=== PATIENT | female | born 1990 | race Caucasian/White ===

== ENCOUNTER 2020-05-08 22:12 | Emergency (ER) | payer OTHER, SELFPAY ==
[2020-05-08 22:13] VITALS: BP 113/64; PULSE 85; RESP 16; TEMP 36.7; O2SAT 99; BMI 18.8
--- NOTE | 2020-05-08 22:19 | ECG_ITS ---
[facility] Test Date: 2020-05-08 Pat Name: Connie Mckay Department: Room: Gender: Female Dumpster Operator: : 1990 Requested By: Jeremías Rodriguez Order Number: [id number] Albert MD: Trae Bender M.D. Measurements Intervals [place] Rate: 65 P: 61 ID: [id number] QRS: 30 QRSD: 86 T: 48 QT: 437 QTc: 455 Interpretive Statements SINUS RHYTHM No previous ECG available for comparison Electronically Signed On 05-09-2020 16:03:17 CDT by Trae Bender M.D. [email or web address]
--- NOTE | 2020-05-08 22:21 | ED_ITS ---
HPI - Seizure General: Chief Complaint: Seizure Stated Complaint: SEIZURE Time Seen by Provider: 05/08/20 22:18 Source: EMS Mode of arrival: EMS Limitations: altered mental status History of Present Illness: HPI Narrative: Patient presents here with active seizures. Patient has a history of seizures and per EMS has had [address] for [place]. Patient was actively seizing upon arrival given Ativan and is currently stopped. EMS states when she did wake from the seizure she would respond. She had walked to the ambulance bay stating she felt like she was getting have a seizure and felt funny during the day. No history here is available due to her altered mental status. complaint: seizure Onset (ago): minute(s) Review of Systems General: Reports: ROS unobtainable due to medical condition Neuro: Reports: seizure-like activity Physical Exam Const: GENERAL APPEARANCE: in distress HENMT: COMMON NORMALS: normocephalic and atraumatic HEAD & SCALP: normocephalic and atraumatic Eye: COMMON NORMALS: Equal, round and reactive pupils present and EOMs intact bilaterally PUPIL: Yes Equal, round and reactive pupils present Neck/C-Spine: COMMON NORMALS: full ROM and supple Chest: COMMONS NORMALS: normal inspection of the chest and normal palpation of entire chest wall Resp: COMMON NORMALS: normal respiratory effort, No retractions, No use of accessory muscles and clear to auscultation bilaterally AUSCULTATION: clear to auscultation bilaterally Cardio: COMMON NORMALS: regular rate, regular rhythm and No murmurs present (Cardio) RATE: regular rate RHYTHM: regular rhythm GI: COMMON NORMALS: Normal to inspection, nondistended, normoactive bowel sounds present, Soft to palpation, non-tender and no masses PALPATION: Yes Soft to palpation Extremity: COMMON NORMALS: normal to inspection and full ROM Neuro: OTHER: Actively seizing Psych: COMMON NORMALS: negative for Normal thought process present THOUGHT PROCESS: abnormal Skin: COMMON NORMALS: no rashes or lesions noted and no wounds GENERAL SKIN EXAM: no rashes or lesions noted Course Vital Signs: Vital signs: Vital Signs Temperature 98.1 F 05/08/20 22:13 Pulse Rate 54 L 05/09/20 03:44 Respiratory Rate 16 05/09/20 03:44 Blood Pressure 95/55 05/09/20 03:44 Pulse Oximetry 100 05/09/20 03:44 MDM - Seizure MDM Narrative: Medical decision making narrative: Ryder presents here with possible seizure. Her seizures here were atypical states that she has stress-induced seizures have not ever been, and EEG. Patient's head CT and lab work here are normal. Patient feels improved and is requesting discharge. She is able ambulate and answer my questions. She is to follow-up with her primary care doctor in 3 to 5 days return if worsening. Lab Data: Labs: Lab Results 05/08/20 05/08/20 05/08/20 Range/Units 22:48 22:48 22:48 WBC 5.1 (4.0-10.0) 10^3/ uL RBC 4.18 (4.1-5.3) 10^6/u L Hgb 12.2 (11.5-15.3) g/dL Hct 37.8 (37.0-47.0) % MCV 90.4 (81-99) fL MCH 29.2 (28.0-34.0) pg MCHC 32.3 (30.0-36.0) g/dL RDW 11.8 L (12.1-15.1) % Plt Count 197 (130-400) 10^3/c mm MPV 10.5 H (7.4-10.4) fL Neut % (Auto) 55.7 % Lymph % (Auto) 36.6 % [place] % (Auto) 7.3 % Eos % (Auto) 0.0 % Baso % (Auto) 0.4 % Neut # (Auto) 2.82 (1.8-7.7) 10^3/u L Lymph # (Auto) 1.9 (0.8-4.8) 10^3/u L [place] # (Auto) 0.4 (0.2-0.9) 10^3/u L Eos # (Auto) 0.0 (0.0-0.8) 10^3/u L Baso # (Auto) 0.0 (0.0-0.1) 10^3/u L Nucleated RBC % (a uto) 0 % Nucleated RBCs # 0.0 /100WBC Sodium 143 (136-145) mmol/L Potassium 3.8 (3.5-5.1) mmol/L Chloride 106 (98-107) mmol/L Carbon Dioxide 27 (22-29) mmol/L Anion Gap 13.8 (5-19) BUN 24 H (6-20) mg/dL Creatinine 0.7 (0.5-0.9) mg/dL GFR Calculation 99.6 (90-130) mL/min Glucose 88 (65-115) mg/dL Calculated Osmolal ity 292 (285-295) mOsm/k g Calcium 8.7 (8.5-10.5) mg/dL Total Bilirubin 0.4 (0.15-1.2) mg/dL AST 17 (0-32) U/L ALT 17 (0-33) U/L Alkaline Phosphata se 51 (35-105) IU/L Total Protein 6.0 L (6.6-8.7) g/dL Albumin 4.0 (3.5-5.2) g/dL Globulin 2.0 (1.3-4.6) g/dL HCG, Qual Negative (Negative) Imaging Data^: CT Head: Radiologist's impression: [place] [address] CT Scan Report Signed Patient: Connie Mckay Unit #: [id number] : 1990 Age/Sex: 29 / F ADM Date: 05/08/20 Loc: ER Room/Bed: Attending Dr: Ordering Provider/Ordering MD: Jeremías Rodriguez MD Date of Service: 05/08/20 Procedure(s): CT head wo con* [id number] Accession Number(s): [id number] Report Number: [id number] PROCEDURE INFORMATION: Exam: CT Head Without Contrast Exam date and time: 05/08/2020 10:25 PM Age: 29 years old Clinical indication: Condition or disease; Convulsions or seizures; Prior surgery; Additional info: Seizure TECHNIQUE: Imaging protocol: Computed tomography of the head without contrast. Radiation optimization: All CT scans at this facility use at least one of these dose optimization techniques: automated exposure control; mA and/or kV adjustment per patient size (includes targeted exams where dose is matched to clinical indication); or iterative reconstruction. COMPARISON: CT Head wo IV contrast* [id number] 05/19/2019 3:19 AM RADIATION DOSE METRICS: Total DLP (mGy-cm): 1260.12 FINDINGS: Brain: Small area of encephalomalacia inferior right frontal lobe is noted. Previously visualized mass/hemorrhage has been resected. No acute hemorrhage. Unremarkable white matter. No mass effect. Ventricles: Normal. No ventriculomegaly. Bones/joints: Postoperative craniotomy. No acute fracture. Sinuses: Visualized sinuses are unremarkable. No fluid levels. Mastoid air cells: Visualized mastoid air cells are well aerated. Soft tissues: Unremarkable. CT/CT head wo con* [id number] IMPRESSION: No acute intracranial abnormality. Postoperative changes are noted. EKG Data^: EKG 1: Attestation: I personally reviewed and interpreted this EKG as follows: EKG interpretation date: 05/08/20 EKG interpretation time: 22:47 Interpretation: nsr hr [address] or t wav abnormalities qrs 86 qtc 443 Discharge Plan Discharge Patient Disposition: Home Clinical Impression: Generalized seizure Condition: Stable Prescriptions: No Action estradiol 1 mg tablet 1 mg PO DAILY 30 Days Qty: 5 RF: 0 desvenlafaxine succinate [Pristiq] 25 mg tablet extended release 24 hr 25 mg PO BID 7 Days Qty: 14 RF: 0 Discharge Orders: Discharge Order (Routine); Ordered 05/09/20 Ordered By: Jeremías Rodriguez Referrals: Cheyanne Leon MD [Primary Care Provider] - 1-3 days Discharge Diet: Advance as tolerated Discharge Activity: Resume usual activity Patient Instructions: Recurrent Seizures Adult (ED) Stand Alone Forms: Work/School Release Discharge Date/Time: 05/09/20 03:59 Coding Level of Care Code ED Sql [employer] Dba Developer for Chg Fwd Exam Comprehensive
[2020-05-08] MEDS: LORazepam 2 mg/mL INJ 1 mL 6 MG IVP (22:31)
[2020-05-08 22:36] VITALS: BP 91/53; PULSE 72; RESP 18; O2SAT 100
[2020-05-08] MEDS: LORazepam 2 mg/mL INJ 1 mL 4 MG IVP (22:37)
--- NOTE | 2020-05-08 22:38 | PC.NURSE ---
IN PT'S ROOM TO DO A EKG. PT WAS FOUND TO BE HAVING A SEIZURE. SEIZURE STOPPED WITH 4MG OF ATIVAN AND KEPPRA BOLUS STARTED.
[2020-05-08] MEDS: sodium chloride 0.9% 1,000 ML 999 ML IV ×2 (22:41→23:47)
--- NOTE | 2020-05-08 22:54 | PC.NURSE ---
EKG done at 2245 and shown to ER doctor
[2020-05-08 22:56] LABS: Basophils % 0.4 %; Hematocrit 37.8 % (37.0-47.0); Hemoglobin 12.2 g/dL (11.5-15.3); Lymphocytes # 1.9 10^3/uL (0.8-4.8); Lymphocytes % 36.6 %; Mean Corpuscular HGB Conc 32.3 g/dL (30.0-36.0); Mean Corpuscular Hemoglobin 29.2 pg (28.0-34.0); Mean Corpuscular Volume 90.4 fL (81-99); Mean Platelet Volume 10.5 fL (7.4-10.4); Monocytes # 0.4 10^3/uL (0.2-0.9); Monocytes % 7.3 %; Neutrophils # 2.82 10^3/uL (1.8-7.7); Neutrophils % 55.7 %; Nucleated Red Blood Cells % 0 %; Platelet Count 197 10^3/cmm (130-400); Red Blood Count 4.18 10^6/uL (4.1-5.3); Red Cell Distribution Width 11.8 % (12.1-15.1); White Blood Count 5.1 10^3/uL (4.0-10.0)
[2020-05-08 23:15] LABS: Alanine Aminotransferase 17 U/L (0-33); Alkaline Phosphatase 51 IU/L (35-105); Anion Gap 13.8 (5-19); Aspartate Amino Transferase 17 U/L (0-32); Blood Urea Nitrogen 24 mg/dL (6-20); Calcium 8.7 mg/dL (8.5-10.5); Carbon Dioxide 27 mmol/L (22-29); Chloride 106 mmol/L (98-107); Glomerular Filtration Rate 99.6 mL/min (90-130); Glucose 88 mg/dL (65-115); Osmolality Calculated 292 mOsm/kg (285-295); Potassium 3.8 mmol/L (3.5-5.1); Sodium 143 mmol/L (136-145); Total Bilirubin 0.4 mg/dL (0.15-1.2)
[2020-05-08 23:28] LABS: HCG, Serum Qual Negative (Negative)
[2020-05-08 23:43] VITALS: BP 87/44; PULSE 73; RESP 16; O2SAT 99
[2020-05-09] VITALS: BP 90/45; PULSE 69; RESP 16; O2SAT 100
[2020-05-09 01:00] VITALS: BP 92/51; PULSE 65; RESP 17; O2SAT 100
[2020-05-09 02:00] VITALS: BP 98/54; PULSE 57; RESP 15; O2SAT 100
[2020-05-09] MEDS: sodium chloride 0.9% 1,000 ML 999 ML IV (02:31)
[2020-05-09 03:00] VITALS: BP 94/66; PULSE 49; RESP 14; O2SAT 100
[2020-05-09 03:44] VITALS: BP 95/55; PULSE 54; RESP 16; O2SAT 100
== END 2020-05-09 03:59 | disposition home or self-care (01) ==
PROVIDERS: Emergency Provider Emergency Medicine; PCP Family Medicine
DX: G40.89 Other seizures (principal)
CPT/HCPCS: 12345; 70450; 80053; 84703; 85025; 93005; 96365; 96366; 96375; 96376; 99284; J1953; J2060; J7030

== ENCOUNTER → 2021-01-02 14:50 | Outpatient (BNVA) | payer OTHER, SELFPAY | PROVIDERS: PCP Family Medicine; Visit Provider Otolaryngology | DX: R13.10 Dysphagia, unspecified (principal) | CPT/HCPCS: 87635 ==

== ENCOUNTER 2021-01-07 07:56 | Day surgery (SDC) | payer OTHER, SELFPAY ==
[2021-01-07] VITALS (9 sets, daily range): BP systolic 96–114; BP diastolic 65–70; PULSE 45–66; RESP 10–18; TEMP 36.3–36.7; O2SAT 99–100
--- NOTE | 2021-01-07 06:41 | P.ANESASSM_ITS ---
Pre-Anesthetic Assessment Pre-Anesthetic Assessment: Height/Weight: Height 1.65 m Weight 61.235 kg Preop Diagnosis: dysphagia Proposed Procedure: Operation Date: 01/07/21 09:20 Proposed Procedures p Direct Laryngoscopy with biopsy [id number] R49.0(Not Applicable) - Yunior Webster MD Familial anesthetic complications: PONV Was Beta Jennifer taken within 24 hours: N/A Was Clonidine taken within 24 hours: N/A Last intake: > 8 hrs Social: Social History: No alcohol and No tobacco Exam: Pre-Anes Outpt Exam: alert, oriented x 3, clear to auscultation bilaterally and regular rate & rhythm Airway: Cervical ROM: WNL MP: 1 Dentition: Full Neuropsych: Neuropsych: Seizure Anesthetic Plan: ASA status: 2 Anesthesia: General Risk of > 500 ml blood loss (7ml/kg in children): No PFSH Anesthesia PFSH: Medical History CHAPO (generalized anxiety disorder) Intracranial hemorrhage, spontaneous intraventricular, due to cerebral cavernoma, acute Seizure disorder Surgical History H/O abdominal surgery teratoma tumor removal x2 H/O craniotomy H/O tubal ligation H/O: hysterectomy History of ankle surgery History of surgical removal of meniscus of knee S/P appendectomy S/P cholecystectomy Family History Mother Clotting disorder Brother Clotting disorder Sister Clotting disorder Grandmother Diabetes CAD (coronary artery disease) Hypertension Grandfather Lung disease Denies family history of Suicide Social History Smoking and tobacco status: former smoker Quit status (tobacco): has quit using tobacco Year quit tobacco: 2013 Second hand smoke exposure: No Alcohol intake: former Year of sobriety/quit date alcohol: 2019 Former alcohol use details: VERY RARE Caregiver/support person: Yes Lives independently: No Household members: spouse and children Housing: House Marital status: Number of children: 2 Number of grandchildren: 0 service: No Current occupational status: employed Current occupation: NURSE [employer] [place] Pets and animals: Yes Pets & animals: dog(s), horse(s) and farm animals Farm Animals: horses/donkey/mule History of recent travel: No Sexually active: Yes Are you practicing safe sex: No Current gender identity: Female Female Reproductive History: Spontaneous abortions: No Data Anesthesia Cardiac Studies: No Data to Display
[2021-01-07] MEDS: sodium chloride 0.9% 1,000 ML 30 ML IV (08:30)
[2021-01-07] MEDS: scopolamine 1.5 Patch 1 PATCH TRANSDERMA (08:31)
[2021-01-07] MEDS: ondansetron 2 mg/ML SDV 2 mL 4 MG IVP (08:31)
[2021-01-07] MEDS: ondansetron 4 MG Tablet PO (08:43)
--- NOTE | 2021-01-07 09:37 | W.PM.OPSUD ---
Surgery/Procedure H&P Update DATE OF PROCEDURE: January 07, 2021 DATE H&P PERFORMED: 01/02/21 H&P UPDATE INFORMATION: I have reviewed H&P completed within last 30 days, I have examined patient prior to procedure and No changes to prior documentation PREOP DIAGNOSIS: dysphagia PLANNED PROCEDURE: Operation Date: 01/07/21 09:20 Proposed Procedures p Direct Laryngoscopy with biopsy [id number] R49.0(Not Applicable) - Yunior Webster MD
[2021-01-07] MEDS: EPINEPHrine 1 mg/mL INJ XX (10:15)
--- NOTE | 2021-01-07 10:25 | P.OP_ITS ---
Operative Report Date of procedure: January 07, 2021 Pre-op Diagnosis: dysphagia /right arytenoid mass Post-op diagnosis: same Post-op Findings: Findings at surgery were spherical white mass extending from the posterior true vocal cord and arytenoid medially Procedure Done: Direct suspension microscopic laryngoscopy with excision of right true vocal cord and arytenoid mass Implants: No implants Specimens removed/disposition: Right true vocal cord and arytenoid mass Pathology: Right true vocal cord and arytenoid mass Surgeon: Yunior Webster Anesthesia: General Estimated blood loss (mL): 5 Complications: No complications Findings: Findings at the time of the procedure are a 3 mm spherical mass white in color and emanating from the posterior aspect of the right true vocal cord and adjoining arytenoid. Condition: stable Disposition: PACU Brief History: 30-year-old female patient has had problems with painful and difficult swallowing as well as hoarseness. She was noted on flexible laryngoscopy in the office to have a right arytenoid spherical mass which was white in color and measured about 3 mm in diameter. It was felt that this needed to be removed surgically. The procedure its risks and complications of been explained in detail to the patient in the office setting. These risks included bleeding infection scarring swelling bruising recurrence need for additional treatment and more serious risk such as heart attack or stroke or not surviving the surgery. It is understood that it is likely that the patient will need to be on voice rest for up to 2 weeks after surgery. With all these things understood informed consent was granted and witnessed. Procedure: Description of procedure: The patient was placed on the operating table in the supine position. Adequate general endotracheal tube anesthesia was obtained. She was given Ancef IV for prophylaxis. The table was rotated 90 degrees. The eyes were taped shut and head drape was applied in usual fashion. The head was dropped 15 degrees to the horizontal. At this point a timeout was accomplished identifying the patient date of plan procedure allergies fire risk and medications given. With all in agreement the procedure continued. An anterior commissure operating laryngoscope was inserted over the tongue and the upper dentition was protected by a mouthguard. The scope was inserted to the posterior oropharynx and then down into the hypopharynx and laryngeal area. When appropriate position it was suspended from a Nicholas stand. A microscope with a 400 lens was then brought in for proper visualization. The mass extending off the arytenoid and posterior right true cord was identified. This was removed in a piecemeal fashion using small cup forceps biting level with the surface of the posterior true vocal cord and arytenoid mucous membrane. After removing several small pieces and the large mass and it was smooth the area was treated with a cottonoid soaked in 1-1000 epinephrine. After few minutes this was removed. 2% Xylocaine was sprayed to the larynx to cut down on cough response after surgery. Another cottonoid was placed with 1 1000 epinephrine over the surgical site. This was again removed after several minutes. The area was suctioned clean. There was no sign of bleeding. The suspension was taken down and the scope was removed. The tooth guard was removed. The head was returned to the upright position. Head drape and tape were removed. The throat was then suctioned again with the [employer] suction tip. With no sign of bleeding the patient was then returned to the anesthesiologist for wake-up and extubation. She tolerated the procedure well had an estimated blood loss of 5 mL and arrived in recovery in stable condition.
--- NOTE | 2021-01-07 18:01 | ANE.PACU2 ---
Inpatient post-anesthesia follow up: Airway intact: Yes Vital signs: Temperature 98 F Pulse Rate 62 Respiratory Rate 16 Blood Pressure 100/67 Pulse Oximetry 99 Oxygen Delivery Me thod Room Air Oxygen Flow Rate 6 Fraction of Inspir ed Oxygen Hydration adequate: Yes Nausea and vomiting: No Pain level: 2 Mental status: Baseline
== END 2021-01-07 11:40 | disposition home or self-care (01) ==
PROVIDERS: PCP Family Medicine; Visit Provider Otolaryngology
PROC: 0CJS8ZZ Inspection of Larynx, Via Natural or Artificial Opening Endoscopic (ICD-10-PCS; CPT 31540; principal; 2021-01-07 09:10)
DX: R13.10 Dysphagia, unspecified (principal); J38.7 Other diseases of larynx; Z87.891 Personal history of nicotine dependence
CPT/HCPCS: 31540; 88305; 96374; J0171; J0690; J1100; J1200; J2250; J2405; J3010; J3490; J7030; Q0162

== ENCOUNTER → 2021-05-19 17:34 | Outpatient (BNVA) | payer OTHER, SELFPAY | PROVIDERS: PCP Family Medicine; Visit Provider Family Medicine | DX: F41.1 Generalized anxiety disorder (principal); G40.909 Epilepsy, unspecified, not intractable, without status epilepticus; F32.9 Major depressive disorder, single episode, unspecified; R53.83 Other fatigue; R63.5 Abnormal weight gain | CPT/HCPCS: 80053; 80061; 82607; 82652; 84443; 85025 ==

== ENCOUNTER 2022-07-28 10:04 | Emergency (ER) | payer OTHER, SELFPAY ==
[2022-07-28] VITALS (66 sets, daily range): BP systolic 92–132; BP diastolic 51–91; PULSE 94; RESP 16–18; TEMP 36.6; O2SAT 88–100; BMI 27.4
--- NOTE | 2022-07-28 11:50 | CT_ITS ---
WS: [id number] CT ABDOMEN PELVIS TECHNIQUE: Contrast-enhanced CT of the abdomen and pelvis with coronal and sagittal reformatted image s. CLINICAL INFORMATION: generalized abd COMPARISON: CT November 10, 2018 DLP: 612.[address] scans at [facility] use at least one of these dose optimization techniques: automated e xposure control; mA and/or kV adjustment per patient size (includes targeted exams where dose is matc hed to clinical indication); or iterative reconstruction. FINDINGS: Since 2019. Previously described RIGHT pelvic mass has been resected. Prior hysterectomy. P rior tubal ligation. Prior cholecystectomy and appendectomy. Mild diffuse fatty infiltration liver. Normal portal vein and splenic vein. Lung bases are well aerat ed. Normal spleen. Normal GE junction. Adrenal glands are normal. Normal renal parenchymal enhancemen t. No hydronephrosis. No obstructing renal or ureteral calculi. Pelvic phleboliths. Normal renal pare nchymal enhancement. Normal pancreas. Prior cholecystectomy. Normal common bile duct. Normal caliber abdominal aorta. Celiac and SMA are patent. Normal sigmoid colon. No evidence of small or large bowel obstruction. CT/CT abdomen pelvis w con* [id number] IMPRESSION: 1. No acute findings in the abdomen or pelvis. 2. Prior appendectomy and cholecystectomy. 3. No free fluid in the abdomen or pelvis. 4. Interval resection of the previously described RIGHT pelvic dermoid since 019.
--- NOTE | 2022-07-28 11:52 | ED_ITS ---
HPI - Abdominal Pain General: Chief Complaint: Abdominal Pain Stated Complaint: Abd pains Time Seen by Provider: 07/28/22 11:24 Source: patient and family Mode of arrival: ambulatory Limitations: no limitations History of Present Illness: This patient presents [facility] emergency department because of abdominal pain. She states that she noted nausea Tuesday evening which has progressed to nausea persistently, vomiting, diarrhea and severe abdominal pains. She states that the pains have been pretty steadily present since onset. She states that she has been unsuccessful with eating or drinking much. She states that she has not any blood in her stools or blood in her emesis. She has had a prior cholecystectomy, appendectomy and a hysterectomy. She denies any exposure to infectious disease. She did get antibiotics a couple weeks ago for a dental procedure but states that her stools have not had any foul smell and she had no issues during the time she took the amoxicillin. She denies any fevers chills etc. She is currently taking Mongeon R0 once weekly subcutaneous injection to help with weight loss. She took her second injection Tuesday morning. MD elicited complaint: abdominal pain Pain Consistency: constant Location: Diffuse Quality: cramping and sharp Exacerbating factors: eating Relieving factors: nothing Associated Symptoms: Reports chills; Denies dysuria and fever(s) Review of Systems Const: Reports: chills; Denies: fever(s) or body aches Eyes: Denies: change in vision ENMT: Denies: odynophagia, nasal discharge or nasal congestion Card: Denies: chest pain, palpitations, irregular heart rhythm or edema Resp: Denies: dyspnea, productive cough or non-productive cough : Denies: flank pain, difficulty voiding, dysuria or urinary frequency Musc: Denies: neck pain, back pain, extremity pain or extremity swelling Skin/Breast: Denies: rash Neuro: Denies: headache(s), numbness in extremities or weakness in extremities Psych: Denies: anxiety or depression Endo: Denies: polyuria or polydipsia [facility] ED PFSH: Medical History CHAPO (generalized anxiety disorder) Intracranial hemorrhage, spontaneous intraventricular, due to cerebral cavern vidal, acute Seizure disorder Surgical History H/O abdominal surgery teratoma tumor removal x2 H/O craniotomy H/O tubal ligation H/O: hysterectomy History of ankle surgery History of surgical removal of meniscus of knee S/P appendectomy S/P cholecystectomy Family History Mother Clotting disorder Brother Clotting disorder Sister Clotting disorder Grandmother Diabetes CAD (coronary artery disease) Hypertension Grandfather Lung disease Denies family history of Suicide Social History Smoking and tobacco status: former smoker Quit status (tobacco): has quit using tobacco Year quit tobacco: 2013 Second hand smoke exposure: No Alcohol intake: former Year of sobriety/quit date alcohol: 2018 Former alcohol use details: VERY RARE Caregiver/support person: Yes Lives independently: No Household members: spouse and children Housing: House Marital status: Number of children: 2 Number of grandchildren: 0 service: No Current occupational status: employed 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 She appears to be uncomfortable. Const: COMMON NORMALS: average body habitus, patient oriented x3 and healthy appearing HENMT: COMMON NORMALS: normocephalic, Normal nasal mucous membranes and turbinates present, moist oral mucous membranes and oropharynx normal HEAD & SCALP: normocephalic NOSE: Normal nasal mucous membranes and turbinates present Eye: COMMON NORMALS: Equal, round and reactive pupils present, EOMs intact bilaterally, conjunctivae normal and no scleral icterus CONJUNCTIVA: Yes conjunctivae normal PUPIL: Yes Equal, round and reactive pupils present Neck/C-Spine: COMMON NORMALS: full ROM, no lymphadenopathy and supple Chest: COMMONS NORMALS: normal inspection of the chest Resp: COMMON NORMALS: normal respiratory effort, No use of accessory muscles and clear to auscultation bilaterally AUSCULTATION: clear to auscultation bilaterally Cardio: COMMON NORMALS: regular rate, regular rhythm, No murmurs present (Cardio) and Peripheral pulses 2+ throughout RATE: regular rate RHYTHM: regular rhythm PERIPHERAL PULSES: Peripheral pulses 2+ throughout GI: OTHER: She is diffusely tender to palpation. Voluntary guarding no rebound.. No skin rashes. No ecchymosis : COMMON NORMALS: Yes no CVA tenderness BLADDER/KIDNEY EXAM: Yes no CVA tenderness Back/Pelvis: COMMON NORMALS: no CVA tenderness, thoracic and lumbar spine normal to inspection, no thoracic nor lumbar tenderness, thoraco-lumbar ROM normal and straight leg raise negative bilaterally Extremity: COMMON NORMALS: normal to inspection, full ROM, capillary refill normal, no calf tenderness and no pedal edema Neuro: COMMON NORMALS: patient oriented x3, moves all extremities, no focal motor deficits and no sensory deficits noted Psych: COMMON NORMALS: mental status grossly normal and cooperative Skin: COMMON NORMALS: no rashes or lesions noted, no wounds and turgor normal GENERAL SKIN EXAM: no rashes or lesions noted and turgor normal Course Reevaluation(s): Reevaluation #1: Patient is more comfortable at this time. Her CT scan as well as other ancillary studies are reassuring and do not suggest acute infection, acute surgical abdomen or other ongoing emergency medical condition is the etiology of her symptoms. Review of her moaning 0 drug profile reveals that much if not all of the symptoms she is experienced over the past 3 days could be and are listed as potential side effects of this medication. No way of of confirming and this as the etiology other than following her response and at that point determining whether she wants to continue with that medication. I shared all this information with her and she voiced understanding. We will continue observe for period of time in the emergency department to make sure she is remained stable and symptoms improved and then plan on discharge with outpatient follow-up and or return precautions as needed. Time: 13:42 Reevaluation #2: Patient is now having increasing abdominal symptoms. We will [place] attempt alternative medication to control her symptoms. Again her CT scan and laboratories are reassuring. Time: 14:40 Reevaluation #3: Patient is now asymptomatic and stable to be discharged. Again no evidence of an ongoing surgical issue or other concerning problem at this time and it would seem likely that this is related to her weight loss regimen. I advised her to consult with her primary care doctor on continuation or alteration in this therapy. Time: 16:31 Vital Signs: Vital signs: Vital Signs Temperature 97.8 F 07/28/22 10:30 Pulse Rate 94 07/28/22 10:30 Respiratory Rate 18 07/28/22 13:37 Blood Pressure 108/51 07/28/22 15:45 Pulse Oximetry 96 07/28/22 15:45 Oxygen Delivery Me thod 07/28/22 10:30 MDM - Abdominal Pain Medical Decision Making Patient presented to emergency department 3 days of abdominal pain which began the during the the evening of the day she took her second injection of a GL PG L1 inhibitor use for weight loss. Work-up today revealed no evidence of a surgical abdomen or other ongoing emergency medical condition. She did respond to symptomatic therapy. We discussed likely etiologies and need to consult with her prescribing physician. At this point in time there is no evidence of need for additional ED evaluation and or observation. Stable for discharge with return precautions. Medical Records I reviewed the patient's medical records. Lab Data I reviewed the patient's lab results. : 07/28/22 11:52 07/28/22 11:52 Labs/Radiology: Radiology Impressions Abdomen/Pelvis CT 07/28/22 11:50 IMPRESSION: 1. No acute findings in the abdomen or pelvis. 2. Prior appendectomy and cholecystectomy. 3. No free fluid in the abdomen or pelvis. 4. 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 Laboratory Results WBC 8.6 10^3/uL (4.0-10.0) 07/28/22 11:52 RBC 5.04 10^6/uL (4.1-5.3) 07/28/22 11:52 Hgb 14.9 g/dL (11.5-15.3) 07/28/22 11:52 Hct 45.6 % (37.0-47.0) 07/28/22 11:52 MCV 90.5 fl (81-99) 07/28/22 11:52 MCH 29.6 pg (28.0-34.0) 07/28/22 11:52 MCHC 32.7 g/dL (30.0-36.0) 07/28/22 11:52 RDW 12.2 % (12.1-15.1) 07/28/22 11:52 Plt Count 315 10^3/cmm (130-400) 07/28/22 11:52 MPV 9.9 fL (7.4-10.4) 07/28/22 11:52 Neut % (Auto) 77.9 % 07/28/22 11:52 Lymph % (Auto) 15.3 % 07/28/22 11:52 [place] % (Auto) 6.1 % 07/28/22 11:52 Eos % (Auto) 0.0 % 07/28/22 11:52 Baso % (Auto) 0.5 % 07/28/22 11:52 Neut # (Auto) 6.66 10^3/uL (1.8-7.7) 07/28/22 11:52 Lymph # (Auto) 1.3 10^3/uL (0.8-4.8) 07/28/22 11:52 [place] # (Auto) 0.5 10^3/uL (0.2-0.9) 07/28/22 11:52 Eos # (Auto) 0.0 10^3/uL (0.0-0.8) 07/28/22 11:52 Baso # (Auto) 0.0 10^3/uL (0.0-0.1) 07/28/22 11:52 Nucleated RBC % (auto) 0 % 07/28/22 11:52 Nucleated RBCs # 0.0 /100WBC 07/28/22 11:52 Sodium 139 mmol/L (136-145) 07/28/22 11:52 Potassium 3.9 mmol/L (3.5-5.1) 07/28/22 11:52 Chloride 103 mmol/L (98-107) 07/28/22 11:52 Carbon Dioxide 23 mmol/L (22-29) 07/28/22 11:52 Anion Gap 16.9 (5-19) 07/28/22 11:52 BUN 14 mg/dL (6-20) 07/28/22 11:52 Creatinine 0.8 mg/dL (0.5-0.9) 07/28/22 11:52 GFR Calculation 84.2 mL/min (90-130) L 07/28/22 11:52 Glucose 80 mg/dL (65-115) 07/28/22 11:52 Calculated Osmolality 287 mOsm/kg (285-295) 07/28/22 11:52 Calcium 9.7 mg/dL (8.5-10.5) 07/28/22 11:52 Total Bilirubin 0.5 mg/dL (0.15-1.2) 07/28/22 11:52 AST 19 U/L (0-32) 07/28/22 11:52 ALT 19 U/L (0-33) 07/28/22 11:52 Alkaline Phosphatase 70 U/L (35-105) 07/28/22 11:52 Total Protein 8.2 g/dL (6.6-8.7) 07/28/22 11:52 Albumin 4.8 g/dL (3.5-5.2) 07/28/22 11:52 Globulin 3.4 g/dL (1.3-4.6) 07/28/22 11:52 Lipase 21 U/L (13-60) 07/28/22 11:52 Urine Color Yellow (Yellow) 07/28/22 12:05 Urine Appearance Clear (CLEAR) 07/28/22 12:05 Urine pH 5 (5-7) 07/28/22 12:05 Ur Specific [place] 1.025 (1.005-1.030) 07/28/22 12:05 Urine Protein Neg (Negative) 07/28/22 12:05 Urine Glucose (UA) Norm (Normal) 07/28/22 12:05 Urine Ketones Negative (Negative) 07/28/22 12:05 Urine Blood Neg (Negative) 07/28/22 12:05 Urine Nitrate Negative (Negative) 07/28/22 12:05 Urine Bilirubin Neg (Negative) 07/28/22 12:05 Urine Urobilinogen Norm mg/dL (Negative) 07/28/22 12:05 Ur Leukocyte Esterase Trace (Negative) H 07/28/22 12:05 Urine RBC 0-4 /hpf (0-2) H 07/28/22 12:05 Urine WBC 0-4 /hpf (0-5) H 07/28/22 12:05 Ur Squamous Epith Cells 5-10 /hpf (0-5) H 07/28/22 12:05 Amorphous Sediment Not Reportable 07/28/22 12:05 Urine Bacteria 1+ /hpf (NONE) H 07/28/22 12:05 Urine Mucus 3+ /hpf 07/28/22 12:05 Discharge Plan Discharge Patient Disposition: Home Clinical Impression: Abdominal pain, Medication side effect Condition: Stable Prescriptions: New hyoscyamine sulfate [Levsin] 0.125 mg tablet 0.125 mg PO Q6H PRN (Reason: cramps) Qty: 20 0RF No Action lorazepam [Ativan] 1 mg tablet 1 mg PO DAILY PRN (Reason: seizures) Qty: 20 0RF desvenlafaxine succinate [Pristiq] 25 mg tablet extended release 24 hr 25 mg PO DAILY 30 Days Qty: 30 2RF Rx Instructions: Take with 50 mg tab 340B BRAND NAME ONLY desvenlafaxine succinate [Pristiq] 50 mg tablet extended release 24 hr 50 mg PO DAILY 30 Days Qty: 30 5RF Rx Instructions: Take with 25 mg tab 340B BRAND NAME ONLY estradiol 1 mg tablet 1.5 mg PO DAILY 90 Days Qty: 135 1RF Rx Instructions: 340B topiramate [Topamax] 25 mg tablet 50 mg PO BID Qty: 120 0RF Linzess 145 mcg capsule 145 mcg PO QAM 30 Days Qty: 30 2RF Mounjaro 2.5 mg/0.5 mL Pen Injector 2.5 mg SUBCUT Q7D clonazepam 0.5 mg tablet 0.5 - 1 mg PO BID PRN (Reason: anxiety, seizure activity) Discharge Orders: Discharge ED (Routine); Ordered 07/28/22 Ordered By: Nadeem Yoder Referrals: Cheyanne Leon MD [Primary Care Provider] - Discharge Diet: Advance as tolerated Discharge Activity: Increase activity as tolerated Patient Instructions: Abdominal Pain (ED), Opioid Safety, Pain Management Activity Restrictions/Additional Instructions: Discuss your weight loss medication with your prescribing physician. If you develop any new persistent or worsening symptoms return to this emergency depa rtment for reevaluation. You may use the medications prescribed to help with any ongoing cramping or other mild or moderate discomfort but if your pain significantly increases or persists return to this department Coding Level of Care Code ED Shutdown Coordinator for Hannah Nolan Exam Comprehensive
[2022-07-28 12:05] LABS: Basophils % 0.5 %; Hematocrit 45.6 % (37.0-47.0); Hemoglobin 14.9 g/dL (11.5-15.3); Lymphocytes # 1.3 10^3/uL (0.8-4.8); Lymphocytes % 15.3 %; Mean Corpuscular HGB Conc 32.7 g/dL (30.0-36.0); Mean Corpuscular Hemoglobin 29.6 pg (28.0-34.0); Mean Corpuscular Volume 90.5 fl (81-99); Mean Platelet Volume 9.9 fL (7.4-10.4); Monocytes # 0.5 10^3/uL (0.2-0.9); Monocytes % 6.1 %; Neutrophils # 6.66 10^3/uL (1.8-7.7); Neutrophils % 77.9 %; Nucleated Red Blood Cells % 0 %; Platelet Count 315 10^3/cmm (130-400); Red Blood Count 5.04 10^6/uL (4.1-5.3); Red Cell Distribution Width 12.2 % (12.1-15.1); White Blood Count 8.6 10^3/uL (4.0-10.0)
[2022-07-28] MEDS: lactated ringers 1,000 ML 999 ML IV (12:10)
[2022-07-28] MEDS: morphine 4 mg/mL SDV 1 mL IVP ×2 (12:11→13:37)
[2022-07-28] MEDS: ondansetron 2 mg/ML SDV 2 mL 4 MG IVP (12:11)
[2022-07-28 12:27] LABS: Alanine Aminotransferase 19 U/L (0-33); Albumin Level 4.8 g/dL (3.5-5.2); Alkaline Phosphatase 70 U/L (35-105); Anion Gap 16.9 (5-19); Aspartate Amino Transferase 19 U/L (0-32); Blood Urea Nitrogen 14 mg/dL (6-20); Calcium 9.7 mg/dL (8.5-10.5); Carbon Dioxide 23 mmol/L (22-29); Chloride 103 mmol/L (98-107); Creatinine Clr Calc Pharmacy 104.1116; Globulin 3.4 g/dL (1.3-4.6); Glomerular Filtration Rate 84.2 mL/min (90-130); Glucose 80 mg/dL (65-115); Lipase 21 U/L (13-60); Osmolality Calculated 287 mOsm/kg (285-295); Potassium 3.9 mmol/L (3.5-5.1); Sodium 139 mmol/L (136-145); Total Bilirubin 0.5 mg/dL (0.15-1.2); Total Protein 8.2 g/dL (6.6-8.7)
[2022-07-28 12:39] LABS: Add Urine Culture? No; Add Urine Microscopic? YES; Bacteria Urine 1+ /hpf; Bilirubin Urine Neg (Negative); Blood Urine Neg (Negative); Glucose Urine UA Norm (Normal); Ketones Urine Negative (Negative); Leukocyte Esterase Urine Trace (Negative); Mucus Urine 3+ /hpf; Nitrate Urine Negative (Negative); Protein Urine Neg (Negative); RBC Urine 0-4 /hpf (0-2); Specific Gravity, Urine 1.025 (1.005-1.030); Urine Appearance Clear (CLEAR); Urine Color Yellow (Yellow); Urobilinogen Urine Norm (Negative); WBC Urine 0-4 /hpf (0-5); pH Urine 5 (5-7)
[2022-07-28] MEDS: iohexol 350 mg/mL 100 mL Btl IV (12:41)
[2022-07-28] MEDS: hyoscyamine ODT 0.125 mg Tablet 0.25 MG PO (13:48)
[2022-07-28] MEDS: haloperidol inj 5 mg/mL INJ 1 mL IVP (15:19)
== END 2022-07-28 17:00 | disposition home or self-care (01) ==
PROVIDERS: Emergency Provider Emergency Medicine; PCP Family Medicine
DX: R10.9 Unspecified abdominal pain (principal); T88.7XXA Unspecified adverse effect of drug or medicament, initial encounter; T50.905A Adverse effect of unspecified drugs, medicaments and biological substances, initial encounter; Z87.891 Personal history of nicotine dependence
CPT/HCPCS: 74177; 80053; 81001; 83690; 85025; 96361; 96374; 96375; 96376; 99285; J1630; J2270; J2405; Q9967

== ENCOUNTER → 2022-08-11 11:42 | Outpatient (BNVA) | payer OTHER, SELFPAY | PROVIDERS: PCP Family Medicine; Visit Provider Family Medicine | DX: Z13.6 Encounter for screening for cardiovascular disorders (principal); R53.83 Other fatigue; R63.5 Abnormal weight gain | CPT/HCPCS: 80061; 84443 ==

== ENCOUNTER 2022-10-05 18:56 | Emergency (ER) | payer OTHER, SELFPAY ==
[2022-10-05 19:29] VITALS: BP 112/77; PULSE 90; RESP 18; TEMP 36.9; O2SAT 100; BMI 28.8
[2022-10-05 21:01] LABS: Basophils # 0.1 10^3/uL (0.0-0.1); Basophils % 0.9 %; Eosinophils % 0.3 %; Hematocrit 43.9 % (37.0-47.0); Hemoglobin 14.4 g/dL (11.5-15.3); Lymphocytes # 2.2 10^3/uL (0.8-4.8); Lymphocytes % 28.6 %; Mean Corpuscular HGB Conc 32.8 g/dL (30.0-36.0); Mean Corpuscular Hemoglobin 29.6 pg (28.0-34.0); Mean Corpuscular Volume 90.1 fl (81-99); Mean Platelet Volume 9.8 fL (7.4-10.4); Monocytes # 0.4 10^3/uL (0.2-0.9); Monocytes % 5.6 %; Neutrophils % 63.9 %; Nucleated Red Blood Cells % 0 %; Platelet Count 259 10^3/cmm (130-400); Red Blood Count 4.87 10^6/uL (4.1-5.3); Red Cell Distribution Width 12.4 % (12.1-15.1); White Blood Count 7.5 10^3/uL (4.0-10.0)
[2022-10-05 21:16] LABS: HCG, Serum Qual Negative (Negative)
[2022-10-05 21:18] LABS: INR 0.98 (0.8-1.2)
[2022-10-05 21:31] LABS: Alanine Aminotransferase 20 U/L (0-33); Albumin Level 4.3 g/dL (3.5-5.2); Alkaline Phosphatase 69 U/L (35-105); Anion Gap 12.1 (5-19); Aspartate Amino Transferase 21 U/L (0-32); Blood Urea Nitrogen 12 mg/dL (6-20); Calcium 8.8 mg/dL (8.5-10.5); Carbon Dioxide 25 mmol/L (22-29); Chloride 107 mmol/L (98-107); Globulin 3.2 g/dL (1.3-4.6); Glomerular Filtration Rate 84.2 mL/min (90-130); Glucose 82 mg/dL (65-115); Osmolality Calculated 289 mOsm/kg (285-295); Potassium 4.1 mmol/L (3.5-5.1); Sodium 140 mmol/L (136-145); Total Bilirubin 0.2 mg/dL (0.15-1.2); Total Protein 7.5 g/dL (6.6-8.7)
--- NOTE | 2022-10-05 21:46 | CTR_ITS ---
PROCEDURE INFORMATION: Exam: CT Abdomen And Pelvis With Contrast Exam date and time: 10/05/2022 10:18 PM Age: 31 years old Clinical indication: Nausea and vomiting; Prior surgery; Surgery type: Gb. Appy. Hysterectomy. Tubal ligation. Patient HX: C/O n/v with rectal bleeding. ; Additional info: Abd pain TECHNIQUE: Imaging protocol: Computed tomography of the abdomen and pelvis with contrast. Radiation optimization: All CT scans at this facility use at least one of these dose optimization techniques: automated exposure control; mA and/or kV adjustment per patient size (includes targeted exams where dose is matched to clinical indication); or iterative reconstruction. Contrast material: OMNI 350; Contrast volume: 100 ml; Contrast route: INTRAVENOUS (IV); COMPARISON: CT abdomen pelvis w con* [id number] 07/28/2022 12:37 PM RADIATION DOSE METRICS: Total DLP (mGy-cm): 619.08 FINDINGS: Liver: Punctate low-attenuation lesion in the right hepatic dome likely reflects a small cyst. Gallbladder and bile ducts: Cholecystectomy. No ductal dilation. Pancreas: Normal. No ductal dilation. Spleen: Normal. No splenomegaly. Adrenal glands: Normal. No mass. Kidneys and ureters: Normal. No hydronephrosis. Stomach and bowel: No obstruction. No mucosal thickening. Appendix: Appendectomy. Intraperitoneal space: Unremarkable. No free air. No significant fluid collection. Vasculature: Unremarkable. No abdominal aortic aneurysm. Lymph nodes: Unremarkable. No enlarged lymph nodes. Urinary bladder: Unremarkable as visualized. Reproductive: Hysterectomy. Bones/joints: No acute fracture. Soft tissues: Unremarkable. CT/CT abdomen pelvis w con* [id number] IMPRESSION: No acute findings.
[2022-10-05] MEDS: diphenhydrAMINE 50 mg/mL SDV 1mL IVP (22:01)
[2022-10-05] MEDS: metoclopramide 5 mg/mL SDV 2 mL 10 MG IVP (22:01)
[2022-10-05] MEDS: sodium chloride 0.9% 1,000 ML 999 ML IV (22:01)
[2022-10-05 22:04] VITALS: BP 108/80; PULSE 66; RESP 14; O2SAT 100
--- NOTE | 2022-10-05 22:08 | ED_ITS ---
HPI - Abdominal Pain General: Chief Complaint: Abdominal Pain Stated Complaint: rectal bleeding, vomiting blood Time Seen by Provider: 10/05/22 21:30 Source: patient Mode of arrival: ambulatory Limitations: no limitations History of Present Illness: 31-year-old female states that over the last 2 days she has been having fatigue along with abdominal cramping nausea vomiting and diarrhea she states she has had some blood in her stools. She denies any fever she has been normotensive. She denies any worsening improving factors she states she was recently positive for COVID on September 23. No cough or congestion currently. Associated Symptoms: Reports nausea and vomiting; Denies chills, dysuria and fever(s) Review of Systems Const: Denies: fever(s), chills, body aches or change in appetite Eyes: Denies: blurry vision or eye discomfort ENMT: Denies: throat pain or dental pain Card: Denies: chest pain Resp: Denies: dyspnea GI: Reports: abdominal pain, nausea and vomiting : Denies: dysuria Musc: Denies: neck pain or back pain Skin/Breast: Denies: rash Neuro: Denies: headache(s) Psych: Denies: depression Marcus/Lymph: Denies: easy bruising All/Imm: Denies: urticaria PFSH ED PFSH: Medical History CHAPO (generalized anxiety disorder) Intracranial hemorrhage, spontaneous intraventricular, due to cerebral cavernoma, acute Seizure disorder Surgical History H/O abdominal surgery teratoma tumor removal x2 H/O craniotomy H/O tubal ligation H/O: hysterectomy History of ankle surgery History of surgical removal of meniscus of knee S/P appendectomy S/P cholecystectomy Family History Mother Clotting disorder Brother Clotting disorder Sister Clotting disorder Grandmother Diabetes CAD (coronary artery disease) Hypertension Grandfather Lung disease Denies family history of Suicide Social History Smoking and tobacco status: former smoker Quit status (tobacco): has quit using tobacco Year quit tobacco: 2013 Second hand smoke exposure: No Alcohol intake: former Year of sobriety/quit date alcohol: 2019 Former alcohol use details: VERY RARE Caregiver/support person: Yes Lives independently: No Household members: spouse and children Housing: House Marital status: Number of children: 2 Number of grandchildren: 0 service: No Current occupational status: employed 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[place] Pets and animals: Yes Pets & animals: dog(s), horse(s) and farm animals Farm Animals: horses/donkey/mule History of recent travel: No Sexually active: Yes Are you practicing safe sex: No Current gender identity: Female Female Reproductive History: Para: 2 Spontaneous abortions: No Physical Exam Const: COMMON NORMALS: no acute distress, patient oriented x3 and healthy appearing HENMT: COMMON NORMALS: normocephalic and atraumatic HEAD & SCALP: normocephalic and atraumatic Eye: COMMON NORMALS: Equal, round and reactive pupils present and EOMs intact bilaterally PUPIL: Yes Equal, round and reactive pupils present Neck/C-Spine: COMMON NORMALS: full ROM and supple Chest: COMMONS NORMALS: normal inspection of the chest and normal palpation of entire chest wall Resp: COMMON NORMALS: normal respiratory effort, No retractions, No use of accessory muscles and clear to auscultation bilaterally AUSCULTATION: clear to auscultation bilaterally Cardio: COMMON NORMALS: regular rate, regular rhythm and No murmurs present (Cardio) RATE: regular rate RHYTHM: regular rhythm GI: COMMON NORMALS: Normal to inspection, nondistended, normoactive bowel sounds present, Soft to palpation, non-tender and no masses PALPATION: Yes Soft to palpation Extremity: COMMON NORMALS: normal to inspection and full ROM Neuro: COMMON NORMALS: patient oriented x3, moves all extremities and no focal motor deficits Psych: COMMON NORMALS: mental status grossly normal, Normal thought process present and cooperative THOUGHT PROCESS: Normal thought process present Skin: COMMON NORMALS: no rashes or lesions noted and no wounds GENERAL SKIN EXAM: no rashes or lesions noted Course Vital Signs: Vital signs: Vital Signs Temperature 98.5 F 10/05/22 19:29 Pulse Rate 66 10/05/22 22:04 Respiratory Rate 14 10/05/22 22:04 Blood Pressure 108/80 10/05/22 22:04 Pulse Oximetry 100 10/05/22 22:04 Oxygen Delivery Me thod 10/05/22 22:04 MDM - Abdominal Pain Medical Decision Making Patient presents with abdominal pain along with vomiting and diarrhea she is well-appearing here CT scan and blood work are all normal she is stable for discharge at this time she is to follow-up with her PCP she understands agrees to plan Lab Data 10/05/22 20:46 10/05/22 20:46 Labs/Radiology: Radiology Impressions Abdomen/Pelvis CT 10/05/22 21:46 IMPRESSION: No acute findings. Laboratory Results WBC 7.5 10^3/uL (4.0-10.0) 10/05/22 20:46 RBC 4.87 10^6/uL (4.1-5.3) 10/05/22 20:46 Hgb 14.4 g/dL (11.5-15.3) 10/05/22 20:46 Hct 43.9 % (37.0-47.0) 10/05/22 20:46 MCV 90.1 fl (81-99) 10/05/22 20:46 MCH 29.6 pg (28.0-34.0) 10/05/22 20:46 MCHC 32.8 g/dL (30.0-36.0) 10/05/22 20:46 RDW 12.4 % (12.1-15.1) 10/05/22 20:46 Plt Count 259 10^3/cmm (130-400) 10/05/22 20:46 MPV 9.8 fL (7.4-10.4) 10/05/22 20:46 Neut % (Auto) 63.9 % 10/05/22 20:46 Lymph % (Auto) 28.6 % 10/05/22 20:46 [place] % (Auto) 5.6 % 10/05/22 20:46 Eos % (Auto) 0.3 % 10/05/22 20:46 Baso % (Auto) 0.9 % 10/05/22 20:46 Neut # (Auto) 4.80 10^3/uL (1.8-7.7) 10/05/22 20:46 Lymph # (Auto) 2.2 10^3/uL (0.8-4.8) 10/05/22 20:46 [place] # (Auto) 0.4 10^3/uL (0.2-0.9) 10/05/22 20:46 Eos # (Auto) 0.0 10^3/uL (0.0-0.8) 10/05/22 20:46 Baso # (Auto) 0.1 10^3/uL (0.0-0.1) 10/05/22 20:46 Nucleated RBC % (auto) 0 % 10/05/22 20:46 Nucleated RBCs # 0.0 /100WBC 10/05/22 20:46 PT 13.30 SECONDS (12.1-14.9) 10/05/22 20:46 INR 0.98 (0.8-1.2) 10/05/22 20:46 Sodium 140 mmol/L (136-145) 10/05/22 20:46 Potassium 4.1 mmol/L (3.5-5.1) 10/05/22 20:46 Chloride 107 mmol/L (98-107) 10/05/22 20:46 Carbon Dioxide 25 mmol/L (22-29) 10/05/22 20:46 Anion Gap 12.1 (5-19) 10/05/22 20:46 BUN 12 mg/dL (6-20) 10/05/22 20:46 Creatinine 0.8 mg/dL (0.5-0.9) 10/05/22 20:46 GFR Calculation 84.2 mL/min (90-130) L 10/05/22 20:46 Glucose 82 mg/dL (65-115) 10/05/22 20:46 Calculated Osmolality 289 mOsm/kg (285-295) 10/05/22 20:46 Calcium 8.8 mg/dL (8.5-10.5) 10/05/22 20:46 Total Bilirubin 0.2 mg/dL (0.15-1.2) 10/05/22 20:46 AST 21 U/L (0-32) 10/05/22 20:46 ALT 20 U/L (0-33) 10/05/22 20:46 Alkaline Phosphatase 69 U/L (35-105) 10/05/22 20:46 Total Protein 7.5 g/dL (6.6-8.7) 10/05/22 20:46 Albumin 4.3 g/dL (3.5-5.2) 10/05/22 20:46 Globulin 3.2 g/dL (1.3-4.6) 10/05/22 20:46 HCG, Qual Negative (Negative) 10/05/22 20:46 Influenza Type A Ag negative (Negative) 10/05/22 22:32 Influenza Type B Ag negative (Negative) 10/05/22 22:32 Discharge Plan Discharge Patient Disposition: Home Clinical Impression: Abdominal pain Condition: Stable Prescriptions: New ondansetron 4 mg tablet,disintegrating 4 mg PO Q6H PRN (Reason: nausea and vomiting) Qty: 14 0RF No Action topiramate [Topamax] 25 mg tablet 50 mg PO BID Qty: 120 11RF desvenlafaxine succinate [Pristiq] 100 mg tablet extended release 24 hr 100 mg PO DAILY 30 Days Qty: 30 5RF Rx Instructions: 340B estradiol 1 mg tablet 1.5 mg PO DAILY 90 Days Qty: 135 3RF Rx Instructions: 340B famotidine 20 mg tablet 20 mg PO DAILY 90 Days Qty: 90 3RF lorazepam [Ativan] 1 mg tablet 1 mg PO DAILY PRN (Reason: seizures) Qty: 20 0RF clonazepam 0.5 mg tablet 0.5 - 1 mg PO BID PRN (Reason: anxiety, seizure activity) hyoscyamine sulfate [Levsin] 0.125 mg tablet 0.125 mg PO Q6H PRN (Reason: cramps) Qty: 20 0RF Linzess 145 mcg capsule 145 mcg PO QAM Discharge Orders: Discharge ED (Routine); Ordered 10/05/22 Ordered By: Jeremías Rodriguez Referrals: Cheyanne Leon MD [Primary Care Provider] - 1-3 days Discharge Diet: Advance as tolerated Discharge Activity: Resume usual activity Patient Instructions: Acute Nausea and Vomiting (ED), Abdominal Pain (ED) Coding Level of Care Code ED Market Asset Protection Manager for Chg Fwd Exam Comprehensive
[2022-10-05] MEDS: iohexol 350 mg/mL 500 mL Btl (per mL) IV (22:22)
[2022-10-05 22:58] LABS: Influenza A by IFA negative (Negative); Influenza B by IFA negative (Negative)
[2022-10-05 23:30] VITALS: BP 107/67; PULSE 66; RESP 14; O2SAT 100
[2022-10-05 23:41] VITALS: BP 107/67; PULSE 66; RESP 14; O2SAT 100
== END 2022-10-05 23:49 | disposition home or self-care (01) ==
PROVIDERS: Emergency Provider Emergency Medicine; PCP Family Medicine
DX: R10.9 Unspecified abdominal pain (principal); Z87.891 Personal history of nicotine dependence
CPT/HCPCS: 36415; 74177; 80053; 84703; 85025; 85610; 87804; 96361; 96374; 96375; 99285; J1200; J2765; J7030; Q9967

== ENCOUNTER 2022-11-24 05:57 | Day surgery (SDC) | payer OTHER, SELFPAY ==
[2022-11-23 08:38] VITALS: BMI 28.3
[2022-11-24 06:26] VITALS: BP 116/83; PULSE 98; RESP 18; TEMP 36.4; O2SAT 99
[2022-11-24] MEDS: sodium chloride 0.9% 1,000 ML 30 ML IV (06:35)
--- NOTE | 2022-11-24 06:43 | W.PM.OPSUD ---
Surgery/Procedure H&P Update DATE OF PROCEDURE: November 24, 2022 DATE H&P PERFORMED: 11/16/22 PREOP DIAGNOSIS: Epigastric pain PLANNED PROCEDURE: Operation Date: 11/24/22 07:00 Proposed Procedures p [id number] EGD [id number] Colonoscopy K62.5,R10.13(Not Applicable) - DO karma Malone Colonoscopy(Not Applicable) - Sandeep Hernandez DO
--- NOTE | 2022-11-24 07:02 | P.ANESASSM_ITS ---
Pre-Anesthetic Assessment Height/Weight: Height 1.65 m Weight 77.111 kg Temp Pulse Resp BP Pulse Ox O2 Del Method 97.6 F 98 18 116/83 99 11/24/22 06:26 11/24/22 06:26 11/24/22 06:26 11/24/22 06:26 11/24/22 06:26 11/24/22 06:26 Preop Diagnosis: Epigastric pain Operation Date: 11/24/22 07:00 Proposed Procedures p [id number] EGD [id number] Colonoscopy K62.5,R10.13(Not Applicable) - Sandeep Hernandez DO s Colonoscopy(Not Applicable) - Sandeep Hernandez DO Was Beta Jennifer taken within 24 hours: N/A Was Clonidine taken within 24 hours: N/A Last intake: Intake Last Liquid Date 11/23/22 Last Liquid Time 22:00 Last Solid Date 11/21/22 Last Solid Time 13:00 Social No alcohol and No tobacco Exam alert, oriented x 3, clear to auscultation bilaterally and regular rate & rhythm Airway Submandibular: within normal limits Cervical ROM: within normal limits Mallampati: Class I History/ROS No significant history except as noted and No significant complaints Pulmonary None reported CV/HEM None reported None reported Hepatic None reported GI epigastric pain Metabolic None reported Musc/skel None reported Neuropsych None reported Anesthetic Plan ASA status: 2 Anesthesia: Anesthesia Evaluation and MAC Risk of > 500 ml blood loss (7ml/kg in children): Yes, adequate IV access and fluids planned Medications/Allergies Home Medications Medication Instructions Recorded Confirmed Last Taken Type clonazepam 0.5 mg tablet 0.5 - 1 mg PO BID PRN anxiety, 07/28/22 11/23/22 3 Weeks Ago History seizure activity ~08/05/22 lorazepam 1 mg tablet (Ativan) 1 mg PO DAILY PRN seizures #20 tabs 08/11/22 11/23/22 1 Year Ago Rx ~08/26/21 topiramate 25 mg tablet (Topamax) 50 mg PO BID #120 tabs 08/11/22 11/23/22 11/23/22 Rx linaclotide 145 mcg capsule 145 mcg PO QAM 30 days #30 caps 11/04/22 11/23/22 11/23/22 Rx (Linzess) pantoprazole 40 mg tablet,delayed 40 mg PO BID 6 weeks #84 tabs 11/16/2211/23/22 Rx release (Protonix) Pristiq 100 mg tablet,extended 100 mg PO DAILY DEPRESSION AND 11/17/22 11/23/22 11/23/22 Rx release (desvenlafaxine succinate) ANXIETY 30 days #30 tabs ondansetron 8 mg disintegrating 8 mg PO Q8H PRN nausea and 11/22/22 11/23/22 11/23/22 Rx tablet vomiting #30 tabs cholecalciferol (vitamin D3) 1,250 1,250 mcg PO .WEEKLY 11/23/22 11/23/22 0 11/19/22 History mcg (50,000 unit) capsule tirzepatide 2.5 mg/0.5 mL 2.5 mg SUBCUT .WEEKLY 11/23/22 11/23/22 11/21/22 History subcutaneous pen injector (Mounjaro) Allergies Allergy/AdvReac Type Severity Reaction Status Date / Time bupropion [From Wellbutrin] Allergy Mild HIVES Verified 11/23/22 08:32 phenytoin [From Dilantin] Allergy hives Verified 11/23/22 08:32 Sulfa (Sulfonamide Allergy rash Verified 11/23/22 08:32 Antibiotics) Current Medications Generic Name Dose Route Start Last Admin Trade Name Freq PRN Reason Stop Dose Admin Sodium Chloride 1,000 mls @ 30 mls/hr 11/24/22 06:15 11/24/22 06:35 Sodium Chloride 0.9% IV 11/25/22 06:14 30 mls/hr .Q24H PAUL Administration PFSH Anesthesia Medical History CHAPO (generalized anxiety disorder) Intracranial hemorrhage, spontaneous intraventricular, due to cerebral cavernoma, acute Seizure disorder Surgical History H/O abdominal surgery teratoma tumor removal x2 H/O craniotomy H/O tubal ligation H/O: hysterectomy History of ankle surgery History of surgical removal of meniscus of knee S/P appendectomy S/P cholecystectomy Family History Mother Clotting disorder Brother Clotting disorder Sister Clotting disorder Grandmother Diabetes CAD (coronary artery disease) Hypertension Grandfather Lung disease Denies family history of Suicide Social History Smoking and tobacco status: former smoker Quit status (tobacco): has quit using tobacco Year quit tobacco: 2013 Second hand smoke exposure: No Alcohol intake: former Year of sobriety/quit date alcohol: 2018 Former alcohol use details: VERY RARE Caregiver/support person: Yes Lives independently: No Household members: spouse and children Housing: House Marital status: Number of children: 2 Number of grandchildren: 0 service: No Current occupational status: employed Current occupation: NURSE FOR [employer] – [place] Pets and animals: Yes Pets & animals: dog(s), horse(s) and farm animals Farm Animals: horses/donkey/mule History of recent travel: No Sexually active: Yes Are you practicing safe sex: No Current gender identity: Female Female Reproductive History Para: 2 Spontaneous abortions: No Data Anesthesia Cardiac Studies: No Data to Display
[2022-11-24 07:37] VITALS: BP 116/89; PULSE 96; RESP 14; TEMP 36.1; O2SAT 97
[2022-11-24 07:42] VITALS: BP 111/82; PULSE 94; RESP 16; O2SAT 96
[2022-11-24 07:52] VITALS: BP 109/82; PULSE 77; RESP 18; O2SAT 100
--- NOTE | 2022-11-24 15:45 | ANE.PACU2 ---
Inpatient post-anesthesia follow up: Airway intact: Yes Vital signs: Temperature 97.0 F Pulse Rate 77 Respiratory Rate 18 Blood Pressure 109/82 Pulse Oximetry 100 Oxygen Delivery Me thod Room Air Oxygen Flow Rate Fraction of Inspir ed Oxygen Hydration adequate: Yes Nausea and vomiting: No Pain level: 2 Mental status: Baseline
== END 2022-11-24 08:20 | disposition home or self-care (01) ==
PROVIDERS: PCP Family Medicine; Visit Provider Surgery
PROC: 0DJ08ZZ Inspection of Upper Intestinal Tract, Via Natural or Artificial Opening Endoscopic (ICD-10-PCS; CPT 43235; principal; 2022-11-24 07:00)
PROC: 0DJD8ZZ Inspection of Lower Intestinal Tract, Via Natural or Artificial Opening Endoscopic (ICD-10-PCS; CPT 45378; 2022-11-24 07:00)
DX: R10.13 Epigastric pain (principal); Z87.891 Personal history of nicotine dependence; F41.1 Generalized anxiety disorder; K62.5 Hemorrhage of anus and rectum; K58.1 Irritable bowel syndrome with constipation
CPT/HCPCS: 43239; 45380; 82274; 83630; 87493; 87506; 88305; J2704; J3490; J3535; J7030

== ENCOUNTER → 2023-04-23 12:06 | Outpatient (BNVA) | payer OTHER, SELFPAY | PROVIDERS: PCP Family Medicine; Visit Provider Emergency Medicine | DX: M25.522 Pain in left elbow (principal); W10.9XXA Fall (on) (from) unspecified stairs and steps, initial encounter | CPT/HCPCS: 73080 ==

== ENCOUNTER 2023-10-07 19:17 | Emergency (ER) | payer OTHER, SELFPAY ==
--- NOTE | 2023-10-07 19:19 | XRR_ITS ---
PROCEDURE INFORMATION: Exam: XR Abdomen Exam date and time: 10/07/2023 7:41 PM Age: 32 years old Clinical indication: Abdominal pain; Generalized; Prior surgery; Surgery date: 6+ months; Surgery type: HX ovarian mass with adhesion to bowel x 2 (2019), hysterectomy; Cholecystectomy, appendectomy; Patient HX: Constipation x 2 weeks; Nausea/vomiting; HX ovarian mass with adhesion to bowel x 2; Hysterectomy, cholecystectomy, appendectomy TECHNIQUE: Imaging protocol: Radiologic exam of the abdomen. Views: Frontal supine view of the abdomen. 1 View. COMPARISON: CT abdomen pelvis w con* [id number] 10/05/2022 10:18 PM FINDINGS: Gastrointestinal tract: No evidence for bowel obstruction or perforation. Intraperitoneal space: No free intraperitoneal air. Organs: Stable findings consistent with a previous cholecystectomy with surgical clips in the right upper quadrant. No organomegaly. Bones/joints: Unremarkable. XR/XR KUB portable [id number] IMPRESSION: 1. No evidence for bowel obstruction or perforation. 2. Incidental/nonacute findings are listed in the report.
[2023-10-07 19:24] VITALS: BP 116/87; PULSE 86; RESP 17; TEMP 36.7; O2SAT 99; BMI 25.4
[2023-10-07 20:04] LABS: Basophils % 0.6 %; Hematocrit 42.6 % (36-47); Lymphocytes # 1.9 10^3/uL (0.8-4.8); Mean Corpuscular HGB Conc 32.9 g/dL (30-55); Mean Corpuscular Hemoglobin 28.9 pg (27-33); Mean Platelet Volume 9.8 fL (7.4-10.4); Monocytes # 0.3 10^3/uL (0.2-0.9); Monocytes % 4.8 %; Neutrophils # 4.11 10^3/uL (1.8-7.7); Neutrophils % 64.3 %; Nucleated Red Blood Cells % 0 %; Platelet Count 268 10^3/cmm (157-399); Red Blood Count 4.84 10^6/uL (3.85-5.65); Red Cell Distribution Width 12.3 % (12.1-15.1)
[2023-10-07 20:17] LABS: HCG, Serum Qual Positive (Negative)
[2023-10-07 20:21] LABS: Alanine Aminotransferase 12 U/L (0-33); Albumin Level 4.8 g/dL (3.5-5.2); Alkaline Phosphatase 79 U/L (35-105); Anion Gap 15.9 (5-19); Aspartate Amino Transferase 19 U/L (0-32); Blood Urea Nitrogen 9 mg/dL (6-20); Carbon Dioxide 24 mmol/L (22-29); Chloride 108 mmol/L (98-107); Glucose 87 mg/dL (65-115); Lipase 19 U/L (13-60); Osmolality Calculated 294 mOsm/kg (285-295); Potassium 4.9 mmol/L (3.5-5.1); Sodium 143 mmol/L (136-145); Total Bilirubin 0.5 mg/dL (0.15-1.2); Total Protein 7.8 g/dL (6.6-8.7)
--- NOTE | 2023-10-07 21:13 | CTR_ITS ---
PROCEDURE INFORMATION: Exam: CT Abdomen And Pelvis With Contrast Exam date and time: 10/07/2023 9:52 PM Age: 32 years old Clinical indication: Constipation; Abdominal pain; Generalized; Prior surgery; Surgery date: 6+ months; Surgery type: Gb. Appy. Hysterctomy. Tubal. Teratoma excision. Patient HX: Diffuse abd pain with no bm. TECHNIQUE: Imaging protocol: Computed tomography of the abdomen and pelvis with contrast. Sagittal and coronal reformatted images were created and reviewed. Radiation optimization: All CT scans at this facility use at least one of these dose optimization techniques: automated exposure control; mA and/or kV adjustment per patient size (includes targeted exams where dose is matched to clinical indication); or iterative reconstruction. Contrast material: OMNI 350; Contrast volume: 100 ml; Contrast route: INTRAVENOUS (IV); REPORTING DATA: Count of CT and Cardiac NM exams in prior 12 months: This patient has received 0 known CTs and 0 known cardiac nuclear medicine studies in the 12 months prior to the current study. COMPARISON: CT abdomen pelvis w con* [id number] 10/05/2022 10:18 PM RADIATION DOSE METRICS: Total DLP (mGy-cm): 490.66 FINDINGS: Lungs: Visualized lungs are clear. Pleural spaces: No pleural effusion. Heart: Visualized portions of the heart are unremarkable. Liver: The liver is unremarkable. Gallbladder and bile ducts: Stable findings consistent with a previous cholecystectomy. No biliary ductal dilatation. Pancreas: The pancreas is unremarkable. No pancreatic ductal dilatation. Spleen: The spleen is unremarkable. Adrenal glands: The right and left adrenal glands are unremarkable. Kidneys and ureters: The right and left kidneys are unremarkable. The right and left ureters are unremarkable. Stomach and bowel: Fluid within the small bowel without evidence of bowel wall thickening. Appendix: Appendix not definitely visualized. No inflammatory changes in the pericecal region however. Intraperitoneal space: No free intraperitoneal air. No ascites. No loculated fluid collections to suggest an abscess. Vasculature: No evidence for aortic aneurysm or aortic dissection. Hepatic veins, portal veins, splenic vein, and SMV are patent. Lymph nodes: No lymphadenopathy. Urinary bladder: The bladder is unremarkable for the degree of distension. Reproductive: Stable changes consistent with a previous hysterectomy and bilateral oophorectomy. Bones/joints: Mild degenerative changes in the visualized spine. Soft tissues: No acute abnormality in the extra-abdominal soft tissues. CT/CT abdomen pelvis w con* [id number] IMPRESSION: 1. Fluid within the small bowel without evidence of bowel wall thickening. This may reflect viral gastroenteritis in the appropriate clinical situation. 2. Incidental/nonacute findings are listed in the report.
[2023-10-07 21:21] LABS: Urine Appearance Cloudy (CLEAR); Urine Color Yellow (Yellow)
[2023-10-07 21:22] LABS: Add Urine Microscopic? YES; Amorphous Sediment Urine 2+ /hpf; Bacteria Urine TRACE /hpf; Bilirubin Urine Neg (Negative); Blood Urine Neg (Negative); Glucose Urine UA Norm (Normal); Ketones Urine 1+ (Negative); Leukocyte Esterase Urine Trace (Negative); Mucus Urine 1+ /hpf; Nitrate Urine Negative (Negative); Protein Urine Neg (Negative); RBC Urine 0-4 /hpf (0-2); Squamous Epithelial Cell Urine 0-4 /hpf (0-5); Urobilinogen Urine 1 mg/dL (Negative); WBC Urine 0-4 /hpf (0-5); pH Urine 6.5 (5-7)
--- NOTE | 2023-10-07 21:26 | ED_ITS ---
HPI - Abdominal Pain 2 General: Chief Complaint: Abdominal Pain Stated Complaint: bowel obstruction Time Seen by Provider: 10/07/23 21:06 Source: patient Mode of arrival: ambulatory Limitations: no limitations History of Present Illness: 32-year-old female states she has been h aving abdominal pain and constipation states she has not had a bowel movement in 2 weeks been having diffuse abdominal cramping with some vomiting. 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 Associated Symptoms: Reports constipation, nausea and vomiting; Denies chills, diarrhea, dysuria and fever(s) Review of Systems 2 Const: Denies: fever(s), chills, body aches or change in appetite Eyes: Denies: blurry vision or eye discomfort ENMT: Denies: throat pain or dental pain Card: Denies: chest pain Resp: Denies: dyspnea GI: Reports: abdominal pain, nausea, vomiting and constipation; Denies: diarrhea : Denies: dysuria Musc: Denies: neck pain or back pain Skin/Breast: Denies: rash Neuro: Denies: headache(s) PFSH ED 2 PFSH: Medical History Seizure disorder Intracranial hemorrhage, spontaneous intraventricular, due to cerebral cavernoma, acute CHAPO (generalized anxiety disorder) Surgical History H/O craniotomy H/O: hysterectomy H/O tubal ligation S/P appendectomy S/P cholecystectomy History of ankle surgery History of surgical removal of meniscus of knee H/O abdominal surgery teratoma tumor removal x2 Family History Mother Clotting disorder Brother Clotting disorder Sister Clotting disorder Grandmother Diabetes CAD (coronary artery disease) Hypertension Grandfather Lung disease Denies family history of Suicide Social History Smoking and tobacco/nicotine status: former use of tobacco/nicotine Quit status (tobacco/nicotine): has quit using Year quit tobacco: 2013 Second hand smoke exposure: No Alcohol intake: former Year of sobriety/quit date alcohol: 2019 Former alcohol use details: VERY RARE Substance/Drug Use: never Caregiver/support person: Yes Lives independently: No Household members: spouse and children Housing: House Marital status: Number of children: 2 Number of grandchildren: 0 service: No Current occupational status: employed 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[place] Pets and animals: Yes Pets & animals: dog(s), horse(s) and farm animals Farm Animals: horses/donkey/mule Sexually active: Yes Are you practicing safe sex: No Do you think of yourself as: Straight/Heterosexual Current gender identity: Female Female Reproductive History: Para: 2 Spontaneous abortions: No Physical Exam 2 Const: COMMON NORMALS: no acute distress, patient oriented x3 and healthy appearing HENMT: COMMON NORMALS: normocephalic and atraumatic HEAD & SCALP: n ormocephalic and atraumatic Neck/C-Spine: COMMON NORMALS: full ROM and supple Chest: COMMONS NORMALS: normal inspection of the chest Resp: COMMON NORMALS: normal respiratory effort, No retractions, No use of accessory muscles and clear to auscultation bilaterally AUSCULTATION: clear to auscultation bilaterally Cardio: COMMON NORMALS: regular rate, regular rhythm and No murmurs present (Cardio) RATE: regular rate RHYTHM: regular rhythm GI: COMMON NORMALS: Normal to inspection, nondistended, normoactive bowel sounds present, Soft to palpation, non-tender and no masses PALPATION: Yes Soft to palpation Extremity: COMMON NORMALS: normal to inspection and full ROM Neuro: COMMON NORMALS: patient oriented x3, moves all extremities and no focal motor deficits Psych: COMMON NORMALS: mental status grossly normal, Normal thought process present and cooperative THOUGHT PROCESS: Normal thought process present Skin: COMMON NORMALS: no rashes or lesions noted and no wounds GENERAL SKIN EXAM: no rashes or lesions noted Course 2 Vital Signs: Vital signs: Vital Signs Temperature 98.1 F 10/07/23 19:24 Pulse Rate 86 10/07/23 19:24 Respiratory Rate 17 10/07/23 19:24 Blood Pressure 116/87 10/07/23 19:24 Pulse Oximetry 99 10/07/23 19:24 Oxygen Delivery Me thod Room Air 10/07/23 19:24 MDM - Abdominal Pain Medical Decision Making Patient presents with abdominal pain along with constipation patient's CT scan here is negative blood work here is all normal we will prescribe her Zofran she is stable for discharge she is follow-up with PCP and return if worsening. Medical Records I reviewed the patient's medical records. Lab Data I reviewed the patient's lab results. 10/07/23 19:58 10/07/23 19:58 Labs/Radiology: Radiology Impressions KUB X-Ray 10/07/23 19:19 IMPRESSION: 1. No evidence for bowel obstruction or perforation. 2. Incidental/nonacute findings are listed in the report. Abdomen/Pelvis CT 10/07/23 21:13 IMPRESSION: 1. Fluid within the small bowel without evidence of bowel wall thickening. This may reflect viral gastroenteritis in the appropriate clinical situation. 2. Incidental/nonacute findings are listed in the report. Laboratory Results WBC 6.40 10^3/uL (3.29-11.43) 10/07/23 19:58 RBC 4.84 10^6/uL (3.85-5.65) 10/07/23 19:58 Hgb 14.00 g/dL (11.27-16.99) 10/07/23 19:58 Hct 42.6 % (36-47) 10/07/23 19:58 MCV 88.0 fl (85-98) 10/07/23 19:58 MCH 28.9 pg (27-33) 10/07/23 19:58 MCHC 32.9 g/dL (30-55) 10/07/23 19:58 RDW 12.3 % (12.1-15.1) 10/07/23 19:58 Plt Count 268 10^3/cmm (157-399) 10/07/23 19:58 MPV 9.8 fL (7.4-10.4) 10/07/23 19:58 Neut % (Auto) 64.3 % 10/07/23 19:58 Lymph % (Auto) 30.0 % 10/07/23 19:58 Barren % (Auto) 4.8 % 10/07/23 19:58 Eos % (Auto) 0.0 % 10/07/23 19:58 Baso % (Auto) 0.6 % 10/07/23 19:58 Neut # (Auto) 4.11 10^3/uL (1.8-7.7) 10/07/23 19:58 Lymph # (Auto) 1.9 10^3/uL (0.8-4.8) 10/07/23 19:58 Barren # (Auto) 0.3 10^3/uL (0.2-0.9) 10/07/23 19:58 Eos # (Auto) 0.0 10^3/uL (0.0-0.8) 10/07/23 19:58 Baso # (Auto) 0.0 10^3/uL (0.0-0.1) 10/07/23 19:58 Nucleated RBC % (auto) 0 % 10/07/23 19:58 Nucleated RBCs # 0.0 /100WBC 10/07/23 19:58 Sodium 143 mmol/L (136-145) 10/07/23 19:58 Potassium 4.9 mmol/L (3.5-5.1) 10/07/23 19:58 Chloride 108 mmol/L (98-107) H 10/07/23 19:58 Carbon Dioxide 24 mmol/L (22-29) 10/07/23 19:58 Anion Gap 15.9 (5-19) 10/07/23 19:58 BUN 9 mg/dL (6-20) 10/07/23 19:58 Creatinine 0.9 mg/dL (0.5-0.9) 10/07/23 19:58 GFR Calculation 73.0 mL/min (90-130) L 10/07/23 19:58 Glucose 87 mg/dL (65-115) 10/07/23 19:58 Calculated Osmolality 294 mOsm/kg (285-295) 10/07/23 19:58 Calcium 10.0 mg/dL (8.5-10.5) 10/07/23 19:58 Total Bilirubin 0.5 mg/dL (0.15-1.2) 10/07/23 19:58 AST 19 U/L (0-32) 10/07/23 19:58 ALT 12 U/L (0-33) 10/07/23 19:58 Alkaline Phosphatase 79 U/L (35-105) 10/07/23 19:58 Total Protein 7.8 g/dL (6.6-8.7) 10/07/23 19:58 Albumin 4.8 g/dL (3.5-5.2) 10/07/23 19:58 Globulin 3.0 g/dL (1.3-4.6) 10/07/23 19:58 Lipase 19 U/L (13-60) 10/07/23 19:58 HCG, Qual Positive (Negative) H 10/07/23 19:58 Ser , Semi-Qnt 2.98 mIU/mL 10/07/23 19:58 Urine Color Yellow (Yellow) 10/07/23 20:59 Urine Appearance Cloudy (CLEAR) 10/07/23 20:59 Urine pH 6.5 (5-7) 10/07/23 20:59 Ur Specific Albright 1.020 (1.005-1.030) 10/07/23 20:59 Urine Protein Neg (Negative) 10/07/23 20:59 Urine Glucose (UA) Norm (Normal) 10/07/23 20:59 Urine Ketones 1+ (Negative) H 10/07/23 20:59 Urine Blood Neg (Negative) 10/07/23 20:59 Urine Nitrate Negative (Negative) 10/07/23 20:59 Urine Bilirubin Neg (Negative) 10/07/23 20:59 Urine Urobilinogen 1 mg/dL (Negative) H 10/07/23 20:59 Ur Leukocyte Esterase Trace (Negative) H 10/07/23 20:59 Urine RBC 0-4 /hpf (0-2) H 10/07/23 20:59 Urine WBC 0-4 /hpf (0-5) H 10/07/23 20:59 Ur Squamous Epith Cells 0-4 /hpf (0-5) H 10/07/23 20:59 Amorphous Sediment 2+ /hpf 10/07/23 20:59 Urine Bacteria Trace /hpf (NONE) 10/07/23 20:59 Urine Mucus 1+ /hpf 10/07/23 20:59 All radiology interpretation(s) finalized by discharge Discharge Plan Discharge Patient Disposition: Home Clinical Impression: Abdominal pain Condition: Stable Prescriptions: New ondansetron 4 mg tablet,disintegrating 4 mg PO Q6H PRN (Reason: nausea and vomiting) Qty: 14 0RF No Action lorazepam [Ativan] 1 mg tablet 1 mg PO DAILY PRN (Reason: seizures) Qty: 20 0RF Linzess 145 mcg capsule 145 mcg PO QAM 90 Days Qty: 90 3RF Hold Instructions: Cannot Afford Medication Rx Instructions: failed lubiprostone desvenlafaxine succinate [Pristiq] 100 mg tablet extended release 24 hr 100 mg PO DAILY 90 Days Qty: 90 3RF Rx Instructions: BRAND NAME ONLY topiramate [Topamax] 25 mg tablet 50 mg PO BID 90 Days Qty: 360 3RF clonazepam 0.5 mg tablet 0.5 - 1 mg PO BID PRN (Reason: anxiety, seizure activity) cholecalciferol (vitamin D3) 1,250 mcg (50,000 unit) capsule 1,250 mcg PO .WEEKLY Discharge Orders: Discharge ED (Routine); Ordered 10/07/23 Ordered By: Jeremías Rodriguez Referrals: Cheyanne Leon MD [Primary Care Provider] - 1-3 days Discharge Diet: Advance as tolerated Discharge Activity: Resume usual activity Patient Instructions: Abdominal Pain (ED) Coding Level of Care Code ED Upper Marker for Hannah Nolan
[2023-10-07 21:31] LABS: HCG Quantitative 2.98 mIU/mL
[2023-10-07] MEDS: iohexol 350 mg/mL 500 mL Btl (per mL) IV (21:52)
== END 2023-10-07 22:36 | disposition home or self-care (01) ==
PROVIDERS: Family Medicine; Emergency Provider Emergency Medicine; PCP Family Medicine
DX: R10.9 Unspecified abdominal pain (principal); Z87.891 Personal history of nicotine dependence
CPT/HCPCS: 36415; 74018; 74177; 80053; 81001; 83690; 84702; 84703; 85025; 99285; Q9967

== ENCOUNTER → 2023-12-11 15:58 | Outpatient (BNVA) | payer BC, SELFPAY | PROVIDERS: PCP Family Medicine; Visit Provider Emergency Medicine | DX: R05.9 Cough, unspecified (principal) | CPT/HCPCS: 87400; 87880 ==

== ENCOUNTER → 2025-06-18 16:05 | Outpatient (BNVA) | payer OTHER, SELFPAY | PROVIDERS: PCP Family Medicine; Visit Provider Nurse Practitioner | DX: M54.9 Dorsalgia, unspecified (principal) | CPT/HCPCS: 81000; 87086 ==